=== PATIENT | female | born 1970 | race Caucasian/White ===

== ENCOUNTER 2016-04-26 11:39 | Emergency (ER) | payer MEDICAID, OTHER ==
[~2016-04-26] VITALS: Wt 74.6 kg
[2016-04-26] MEDS ORDERED: ACETAMINOPHEN 500 MG TAB PO STA (14:27)
[2016-04-26] MEDS ORDERED: IBUP800T25 PO (14:29)
[2016-04-26] MEDS ORDERED: ACET325T33 PO (14:29)
[2016-04-26] MEDS ORDERED: OSLT75C PO (14:29)
[2016-04-26] MEDS ORDERED: IBUPROFEN 800 MG TAB PO ONE (14:30)
--- NOTE | 2016-04-26 15:26 | ERD ---
DATE OF SERVICE: 04/26/2016 HISTORY OF PRESENT ILLNESS: The patient is a 45-year-old female complaining of a fever for 2 days w ith a dry cough, sore throat, body aches. No vomiting, no abdominal pain, no change in urination or bowel movement. She took amoxicillin yesterday she had leftover and Tamiflu last night, but no med ication today. She states she woke up this morning feeling much worse. Denies any change in urinat ion or bowel movements. Her daughter did have the flu last week. MEDICAL HISTORY: Denies. ALLERGIES TO MEDICATIONS: DENIES. SURGICAL HISTORY: Gastric bypass, hysterectomy and right ortho knee surgery. SOCIAL HISTORY: Denies. REVIEW OF SYSTEMS: A 12-point review of systems was done. Refer to HPI for positives, all other sy stems negative. PHYSICAL EXAMINATION: VITAL SIGNS: Temperature is 103.4, pulse 99, blood pressure is 127/73, respiratory rate 22, oxygen saturation 100% on room air. Pain intensity 8/10. GENERAL: The patient is well-appearing, well-nourished, no acute distress. HEENT: Atraumatic. Conjunctivae are pink. Pupils equal, round, and reactive to light. There is no s cleral icterus. Tympanic membranes clear bilaterally. Oropharynx clear. No nystagmus or photophobia . NECK: C-spine is soft and supple. There is no meningismus. There is no cervical lymphadenopathy. No JVD. No bruits. No goiter. CHEST: Clear to auscultation bilaterally. There are no rales, wheezes or rhonchi. HEART: Regular rate and rhythm. No murmurs, clicks, rubs or gallops. No S3 or S4. ABDOMEN: Soft, nontender and nondistended. Good bowel sounds. No rebound or guarding. No gross caridad tonitis. No gross organomegaly or masses. No Holley sign or McBurney point tenderness. BACK: No midline or flank tenderness. SKIN: There is no apparent rash or petechia. The skin is warm and dry. EMERGENCY ROOM COURSE: The patient given Tylenol and ibuprofen in the ER. DIAGNOSES: 1. Influenza-like symptoms. 2. Fever. DISCHARGE: The patient is discharged stable. Patient given prescription for Tamiflu, ibuprofen and Tylenol and told to follow up with primary care within 1 to 2 days for reevaluation. Patient is to to maintain adequate hydration and to avoid sharing fluids. All other questions answered at time of discharge. Discharge summary given at the time of departure. Patient understood and complied w ith plan. Dictated By: PERRI CHAIREZ for TYREL FUENTES/JD Conf#: [id number] DID#: [id number]
== END 2016-04-26 14:50 | disposition home or self-care (01) ==
LOC: FTE 11:39
DX: R05 Cough (principal); J02.9 Acute pharyngitis, unspecified
CPT/HCPCS: Z7502; Z7610; 99283